=== PATIENT | female | born 1930 | race Hispanic/Latino ===

== ENCOUNTER 2019-08-10 01:36 | Inpatient (IN) | payer MEDICARE ==
--- NOTE | 2019-08-10 02:10 | Emergency Department Report ---
<LAURENTOBISIVA Snell - Last Filed: 08/10/19 06:09> ED Head Trauma HPI - General Chief complaint: Head Injury Stated complaint: FALL Time Seen by Provider: 08/10/19 01:57 Source: patient, EMS Mode of arrival: Stretcher Limitations: Physical Limitation - History of Present Illness Initial comments: 89-year-old female presents to ED status post fall and head injury. Patient states she fell approximately 1.5 hours ago at home and hit her head on the TV cabinet. No LOC. Place patient reports there was lots of blood present in the area that she fell at home. She reports it was a mechanical fall. States she did not get dizzy, denies any chest pain or shortness of breath prior to the fall. 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 Patient reports headache at this time and also left hip pain. Patient states she did not try to stand while at home, states she scooted toward the door to unlock it for EMS. MD Complaint: head injury, fall -: hour(s) (1.5) Mechanism of Injury: mechanical fall Location: parietal Loss of Consciousness: no Previous Trauma to this Area: Yes Place: home Radiation: none Severity: moderate Quality: aching Consistency: constant Other Injuries: laceration, other (left hip) Context: on other anticoagulant (eliquis) Associated Symptoms: denies other symptoms, neck pain. denies: nausea, vomiting - Related Data Home Medications Medication Instructions Recorded Confirmed Last Taken Apixaban [Eliquis] 5 mg PO BID 08/10/19 08/10/19 Unknown AtorvaSTATin [Lipitor] 20 mg PO QHS 08/10/19 08/10/19 Unknown Lisinopril [Zestril TAB] 10 mg PO BID 08/10/19 08/10/19 Unknown Metoprolol [Lopressor] 25 mg PO BID 08/10/19 08/10/19 Unknown Multivitamin Tab 1 tab PO DAILY 08/10/19 08/10/19 Unknown amLODIPine [Norvasc] 5 mg PO DAILY 08/10/19 08/10/19 Unknown Allergies/Adverse reactions: Allergies Allergy/AdvReac Type Severity Reaction Status Date / Time Sulfa (Sulfonamide AdvReac Itching Verified 08/10/19 02:20 Antibiotics) ED Review of Systems Comment: All other systems reviewed and negative Constitutional: denies: chills, fever Respiratory: denies: shortness of breath Cardiovascular: denies: chest pain, palpitations Gastrointestinal: denies: abdominal pain, nausea, vomiting Musculoskeletal: other (reports left hip pain) Neurological: headache. denies: vertigo ED Past Medical Hx - Past Medical History Previous Medical History?: Yes Hx Hypertension: Yes Hx Arthritis: Yes Additional medical history: blood clots - Surgical History Past Surgical History?: Yes Hx Cholecystectomy: Yes Additional Surgical History: r wrist, R hip, tonsillectomy - Social History Smoking Status: Never Smoker Substance Use Type: None - Medications Home Medications: Home Medications Medication Instructions Recorded Confirmed Last Taken Type Apixaban [Eliquis] 5 mg PO BID 08/10/19 08/10/19 Unknown History AtorvaSTATin [Lipitor] 20 mg PO QHS 08/10/19 08/10/19 Unknown History Lisinopril [Zestril TAB] 10 mg PO BID 08/10/19 08/10/19 Unknown History Metoprolol [Lopressor] 25 mg PO BID 08/10/19 08/10/19 Unknown History Multivitamin Tab 1 tab PO DAILY 08/10/19 08/10/19 Unknown History amLODIPine [Norvasc] 5 mg PO DAILY 08/10/19 08/10/19 Unknown History ED Physical Exam - General Limitations: Physical Limitation General appearance: alert - Head Head exam: Present: other (5 cm laceration to the right parietal scalp) - Eye Eye exam: Present: normal appearance, PERRL, EOMI - ENT ENT exam: Present: mucous membranes moist - Neck Neck exam: Present: normal inspection - Respiratory Respiratory exam: Present: normal lung sounds bilaterally. Absent: respiratory distress - Cardiovascular Cardiovascular Exam: Present: regular rate, normal rhythm - GI/Abdominal GI/Abdominal exam: Present: soft. Absent: distended, tenderness - Extremities Exam Extremities exam: Present: other (decreased ROM in the left hip secondary to pain) - Back Exam Back exam: Present: normal inspection - Neurological Exam Neurological exam: Present: alert, oriented X3, CN II-XII intact. Absent: motor sensory deficit - Psychiatric Psychiatric exam: Present: normal affect, normal mood - Skin Skin exam: Present: warm, dry, intact, normal color ED Course - Reevaluation(s) Reevaluation #1: 08/10/19 04:34 Earlier, while I was suturing the pt, she began to complain of nausea. She bec alyssia bradycardic, w/ HR dropping into the upper 30s. Pt was near syncopal with her appearing to pass out, but she did not. Her heart rate increased again into the 80s. This episode lasted approx 2 min. EKG shows NSR w/ normal rate and rhythm, no ST changes. Reevaluation #2: 08/10/19 04:46 Called into room by RN. Pt's neighbor at bedside, was speaking to pt when she became unresponsive. Pulse present. This time, pt's HR is normal, but BP low with systolic BP of 88 and O2 sats 89% RA. IV fluids ordered. Pt responsive w/ painful stimuli. Pt states she feels funny, but denies pain. Will rescan Head and obtain CTA Chest. Reevaluation #3: 08/10/19 05:[address], feeling much better. BP 152/57, HR 93, O2 sats 100% on 2L - Laceration /Wound Repair Right Parietal Wound Location: head Wound Length (cm): 5 Wound's Depth, Shape: into muscle, linear Wound Explored: clean Irrigated w/ Saline (ccs): 1,000 Betadine Prep?: No Anesthesia: Lidocaine w/ Epi Volume Anesthetic (ccs): 4 Number of Sutures: 10 (rosamaria) Layer Closure?: Yes Deep Layer Suture Size/Type: 4:0 Number Deep Layer Sutures: 3 (vicryl) Sterile Dressing Applied?: No - Lab Data Result diagrams: 08/10/19 02:21 08/10/19 02:08 - EKG Data -: EKG Interpreted by Me EKG shows normal: sinus rhythm, intervals, QRS complexes, ST-T waves Rate: normal Interpretation: no acute changes, other (incomplete right bundle branch block) - Radiology Data Radiology results: report reviewed, image reviewed - Medical Decision Making 89-year-old female, currently on Levaquin as for history of DVT and PE. Patient fell at home, sustaining a head injury with scalp laceration. Patient reports this was a mechanical fall, denies any LOC. Only complaint upon arrival is headache and left hip pain. Initial CT head, CT C-spine, hip films are all negative. Patient was given 4 mg of morphine for pain. While cleaning and repair her laceration, patient had an episode of bradycardia and near syncope w hich lasted for approximately 2 minutes. After the procedure was over, patient had a syncopal episode. This time her heart rate remained normal, but she was found to be hypotensive. Patient responded well to IV fluid bolus. She was taken back to CT to obtain a repeat head and also a CTA of the chest. It is possible that pt may have had a bradycardic or hypotensive episode at home which may have led to her fall/ syncope. Pt will require admission. My colleague, Dr Galvan, will follow-up on CT results. - Differential Diagnosis intracranial injury, arrythmia, ACS, fracture, sprain Critical Care Time: Yes Critical care time in (mins) excluding proc time.: 35 Critical Care Time: 35m minutes ED Disposition Clinical Impression: Head injury, Bradycardia, Scalp laceration, Syncope, Hypotension, Anticoagulant long-term use Disposition: OP ADMIT IP TO THIS HOSP Condition: Stable <JASON GALVAN - Last Filed: 08/10/19 06:35> ED Review of Systems ROS: Stated complaint: FALL Other details as noted in HPI ED Course Vital Signs 08/10/19 08/10/19 08/10/19 01:50 02:00 02:51 Temperature 98.6 F Pulse Rate 78 92 H Respiratory 22 16 19 Rate Blood Pressure 183/71 171/115 Blood Pressure 186/71 [Left] O2 Sat by Pulse 98 95 Oximetry 08/10/19 08/10/19 08/10/19 03:00 03:21 04:00 Temperature Pulse Rate 89 83 Respiratory 21 16 26 H Rate Blood Pressure 135/64 135/51 Blood Pressure [Left] O2 Sat by Pulse 93 96 Oximetry 08/10/19 06:04 Temperature Pulse Rate 94 H Respiratory 23 Rate Blood Pressure Blood Pressure 130/43 [Left] O2 Sat by Pulse 99 Oximetry - Lab Data Result diagrams: 08/10/19 02:21 08/10/19 02:08 Lab Results 08/10/19 08/10/19 08/10/19 Range/Units 02:08 02:08 02:21 WBC 8.1 (4.5-11.0) K/mm3 RBC 3.99 (3.65-5.03) M/mm3 Hgb 12.7 (10.1-14.3) gm/dl Hct 37.7 (30.3-42.9) % MCV 95 (79-97) fl MCH 32 (28-32) pg MCHC 34 (30-34) % RDW 13.3 (13.2-15.2) % Plt Count 182 (140-440) K/mm3 Lymph % (Auto) 10.5 L (13.4-35.0) % [place] % (Auto) 9.5 H (0.0-7.3) % Eos % (Auto) 1.6 (0.0-4.3) % Baso % (Auto) 0.5 (0.0-1.8) % Lymph # 0.8 L (1.2-5.4) K/mm3 [place] # 0.8 (0.0-0.8) K/mm3 Eos # 0.1 (0.0-0.4) K/mm3 Baso # 0.0 (0.0-0.1) K/mm3 Seg Neutrophils % 77.9 H (40.0-70.0) % Seg Neutrophils # 6.3 (1.8-7.7) K/mm3 PT 13.9 (12.2-14.9) Sec. INR 1.08 (0.87-1.13) APTT 29.7 (24.2-36.6) Sec. Sodium 135 L (137-145) mmol/L Potassium 4.1 (3.6-5.0) mmol/L Chloride 103.3 (98-107) mmol/L Carbon Dioxide 21 L (22-30) mmol/L Anion Gap 15 mmol/L BUN 19 H (7-17) mg/dL Creatinine 0.7 (0.7-1.2) mg/dL Estimated GFR > 60 ml/min BUN/Creatinine Ratio 27 % Glucose 122 H (65-100) mg/dL Calcium 9.3 (8.4-10.2) mg/dL Troponin T (0.00-0.029) ng/mL 08/10/19 Range/Units 04:15 WBC (4.5-11.0) K/mm3 RBC (3.65-5.03) M/mm3 Hgb (10.1-14.3) gm/dl Hct (30.3-42.9) % MCV (79-97) fl MCH (28-32) pg MCHC (30-34) % RDW (13.2-15.2) % Plt Count (140-440) K/mm3 Lymph % (Auto) (13.4-35.0) % [place] % (Auto) (0.0-7.3) % Eos % (Auto) (0.0-4.3) % Baso % (Auto) (0.0-1.8) % Lymph # (1.2-5.4) K/mm3 [place] # (0.0-0.8) K/mm3 Eos # (0.0-0.4) K/mm3 Baso # (0.0-0.1) K/mm3 Seg Neutrophils % (40.0-70.0) % Seg Neutrophils # (1.8-7.7) K/mm3 PT (12.2-14.9) Sec. INR (0.87-1.13) APTT (24.2-36.6) Sec. Sodium (137-145) mmol/L Potassium (3.6-5.0) mmol/L Chloride (98-107) mmol/L Carbon Dioxide (22-30) mmol/L Anion Gap mmol/L BUN (7-17) mg/dL Creatinine (0.7-1.2) mg/dL Estimated GFR ml/min BUN/Creatinine Ratio % Glucose (65-100) mg/dL Calcium (8.4-10.2) mg/dL Troponin T < 0.010 (0.00-0.029) ng/mL - Radiology Data Radiology results: report reviewed CTA CHEST WITH IV CONTRAST INDICATION: hypoxia. TECHNIQUE: Axial CT images were obtained through the chest after injection of 100 mL Omnipaque 350 IV contrast. 3 plane MIP reconstructions were produced. All CT scans at this location are performed using CT dose reduction for ALARA by means of automated exposure control. COMPARISON: None available. FINDINGS: PULMONARY ARTERIES: Well- opacified without visualization of thromboemboli. AORTA AND ARTERIES: The aorta is patent and normal in caliber and moderately calcified. The great vessels are patent, normal in caliber and mildly calcified. There is dense generalized coronary atherosclerosis. No acute abnormality is seen. MEDIASTINUM: A subcentimeter noncalcified nodule is seen along the lower pole of the right thyroid lobe. No other significant abnormality is seen along the heart or other mediastinal structures. LUNGS: Biapical scarring is noted with mild dependent bilateral atelectasis. There is a noncalcified solid nodule in the right lower lobe measuring 9 mm on image 75 of series 2. Smaller scattered noncalcified solid nodules are seen along the left lower lobe. No other significant pulmonary abnormality, pneumothorax or pleural effusion. ADDITIONAL FINDINGS: None. UPPER ABDOMEN: No acute abnormality. There is bilateral adrenal hyperplasia. The liver is enlarged. BONES: Osteopenia/osteoporosis is noted with degenerative changes of the shoulders and spine. No acute abnormality is seen. IMPRESSION: 1. No CT evidence for pulmonary embolism. 2. No acute findings. 3. Bilateral lower lobe pulmonary nodules as above. A follow-up CT of the chest without contrast in 3 months is recommended. 4. Incidental subcentimeter right thyroid nodule. No follow-up imaging is indicated at this time. 5. Additional findings as above. CT HEAD WITHOUT CONTRAST INDICATION : change in mental status, head injury. TECHNIQUE: Axial, coronal and sagittal CT imaging was performed from the skull apex through the skull base without contrast. All CT scans at this location are performed using CT dose reduction for ALARA by means of automated exposure control. COMPARISON: CT head without contrast performed earlier today. FINDINGS: PARENCHYMA: No mass, midline shift, hemorrhage, extraaxial collection or acute territorial infarction. Age-appropriate atrophy is stable. VENTRICLES: Prominent secondary to atrophy without an acute abnormality. SOFT TISSUES: The previously seen right parietal scalp hematoma is again noted with surrounding edema. No other significant abnormality of the included soft tissues/orbits. BONES: No ac kiersten osseous abnormality. SINUSES: The previously described sinus disease is unchanged. The mastoid air cells are patent. ADDITIONAL FINDINGS: None. IMPRESSION: 1. No new acute intracranial abnormality. 2. Additional findings as above. Critical care attestation.: If time is entered above; I have spent that time in minutes in the direct care of this critically ill patient, excluding procedure time. ED Disposition Is pt being admited?: Yes Time of Disposition: 06:34 (Dr Srinivasan/[facility])
[2019-08-10] MEDS ORDERED: LIDOCAINE 2%/EPINEPHRINE 1:100,000 VIAL (20 ML) INFILTRATI ONE (02:20)
[2019-08-10] MEDS ORDERED: MORPHINE 2 MG/1 ML INJ IV ONE (02:23)
[2019-08-10] MEDS ORDERED: SODIUM CHLORIDE IRRI 500 ML 500 ML IR ONE (02:23)
[2019-08-10 02:29] LABS: INR 1.08 (0.87-1.13)
[2019-08-10 02:30] LABS: Partial Thromboplastin Time 29.7 Sec. (24.2-36.6)
[2019-08-10] MEDS ORDERED: LIDOCAINE 2%/EPINEPHRINE 1:200,000 VIAL (20 ML) INFILTRATI ONE (02:31)
[2019-08-10] MEDS ORDERED: SODIUM CHLORIDE 0.9% IRR 500 ML BOTTLE IR ONE (02:31)
--- NOTE | 2019-08-10 02:34 | XRay Report ---
RIGHT HIP 3 VIEWS INDICATION / CLINICAL INFORMATION: Right hip pain after fall. COMPARISON: None available. FINDINGS: BONES and JOINT(S): No acute fracture or subluxation. No significant arthritis. Internal fixation of the right hip appears intact and in good position. There is evidence of a remote intertrochanteric fr acture. SOFT TISSUES: No acute abnormality. Generalized atherosclerosis is present along the pelvis and lower extremities. ADDITIONAL FINDINGS: None. IMPRESSION: 1. No acute findings. 2. Additional findings as above. Signer Name: Bradford Dewitt MD Signed: 08/10/2019 2:29 AM Workstation Name: [id number]
[2019-08-10 02:42] LABS: Basophils % (Auto) 0.5 % (0.0-1.8); Eosinophils # (Auto) 0.1 K/mm3 (0.0-0.4); Eosinophils % (Auto) 1.6 % (0.0-4.3); Hematocrit 37.7 % (30.3-42.9); Hemoglobin 12.7 gm/dl (10.1-14.3); Lymphocytes # (Auto) 0.8 K/mm3 (1.2-5.4); Lymphocytes % (Auto) 10.5 % (13.4-35.0); Mean Corpuscular HGB Conc 34 % (30-34); Mean Corpuscular Volume 95 fl (79-97); Monocytes # (Auto) 0.8 K/mm3 (0.0-0.8); Monocytes % (Auto) 9.5 % (0.0-7.3); Platelet Count 182 K/mm3 (140-440); Red Blood Count 3.99 M/mm3 (3.65-5.03); Red Cell Distribution Width 13.3 % (13.2-15.2)
[2019-08-10 02:42] LABS: BUN/Creatinine Ratio 27; Blood Urea Nitrogen 19 mg/dL (7-17); Calcium 9.3 mg/dL (8.4-10.2); Hemolysis Index 43
--- NOTE | 2019-08-10 02:54 | Cat Scan Report ---
CT HEAD WITHOUT CONTRAST INDICATION : MAIN: fall, head injury/ PAIN, on eliquis. TECHNIQUE: Axial, coronal and sagittal CT imaging was performed from the skull apex through the skul l base without contrast. All CT scans at this location are performed using CT dose reduction for ALA RA by means of automated exposure control. COMPARISON: None available. FINDINGS: PARENCHYMA: No mass, midline shift, hemorrhage, extraaxial collection or acute territorial infarctio n. Age-appropriate generalized atrophy is noted. VENTRICLES: Prominent secondary to atrophy without an acute abnormality. SOFT TISSUES: There is a large lateral right parietal scalp hematoma with evidence of additional ext ensive scalp laceration/injury along the bilateral parietal and right occipital regions. No additiona l significant abnormality of the remaining soft tissues/orbits. BONES: No acute osseous abnormality. SINUSES: There is a large right maxillary sinus air-fluid level. The right sphenoid sinus is complete ly opacified. The remaining sinuses are clear. The mastoid air cells are patent. ADDITIONAL FINDINGS: None. IMPRESSION: 1. No acute intracranial abnormality. 2. Large right parietal scalp hematoma with extensive scalp laceration/injury as above. 3. Additional findings as above. Signer Name: Bradford Dewitt MD Signed: 08/10/2019 2:50 AM Workstation Name: [id number]
--- NOTE | 2019-08-10 03:08 | Cat Scan Report ---
CT CERVICAL SPINE WITHOUT CONTRAST INDICATION: Head/neck injury after fall. COMPARISON: None available. TECHNIQUE: Axial, coronal and sagittal CT imaging of the cervical spine without contrast was performe d. All CT scans at this location are performed using CT dose reduction for ALARA by means of automat ed exposure control. FINDINGS: VERTEBRAE:There is exaggeration of the cervical lordosis with grade 1 anterolisthesis at C5-C6. No ac kiersten fracture is seen. Osteopenia is noted. DISC SPACES: Multilevel severe discogenic degenerative changes are seen. FACET JOINTS:There is multilevel bilateral facet hypertrophy. CENTRAL CANAL: There is mild central canal stenosis at C3-C4 secondary to degenerative changes. No si gnificant neural foraminal narrowing is seen. SOFT TISSUES:No acute abnormality. There is mild to moderate generalized atherosclerosis. LUNG APICES: Biapical scarring is seen without an acute abnormality. ADDITIONAL FINDINGS: None IMPRESSION: 1. No acute findings. 2. Severe cervical spondylosis. Signer Name: Bradford Dewitt MD Signed: 08/10/2019 3:04 AM Workstation Name: [email or web address]
--- NOTE | 2019-08-10 03:09 | XRay Report ---
LEFT HIP 2 VIEWS INDICATION / CLINICAL INFORMATION: Left hip pain after fall. COMPARISON: None available. FINDINGS: BONES and JOINT(S): No acute fracture or subluxation. No significant arthritis. SOFT TISSUES: No acute abnormality. Mild atherosclerosis is seen along the pelvis and left thigh. ADDITIONAL FINDINGS: None. IMPRESSION: No acute abnormality of the left hip. Signer Name: Bradford Dewitt MD Signed: 08/10/2019 3:05 AM Workstation Name: [id number]
[2019-08-10] MEDS ORDERED: ONDANSETRON 4 MG/2 ML INJ ONE (03:19)
[2019-08-10] MEDS ORDERED: ONDANSETRON 4 MG/2 ML INJ IV ONE (03:45)
[2019-08-10] MEDS ORDERED: SODIUM CHLORIDE 0.9% 1000 ML 1,000 ML ONE (04:44)
[2019-08-10] MEDS ORDERED: SODIUM CHLORIDE 0.9% 1000 ML 1,000 ML IV ONE ×2 (04:45→06:13)
--- NOTE | 2019-08-10 06:06 | Cat Scan Report ---
CT HEAD WITHOUT CONTRAST INDICATION : change in mental status, head injury. TECHNIQUE: Axial, coronal and sagittal CT imaging was performed from the skull apex through the skul l base without contrast. All CT scans at this location are performed using CT dose reduction for ALA RA by means of automated exposure control. COMPARISON: CT head without contrast performed earlier today. FINDINGS: PARENCHYMA: No mass, midline shift, hemorrhage, extraaxial collection or acute territorial infarctio n. Age-appropriate atrophy is stable. VENTRICLES: Prominent secondary to atrophy without an acute abnormality. SOFT TISSUES: The previously seen right parietal scalp hematoma is again noted with surrounding pratima a. No other significant abnormality of the included soft tissues/orbits. BONES: No acute osseous abnormality. SINUSES: The previously described sinus disease is unchanged. The mastoid air cells are patent. ADDITIONAL FINDINGS: None. IMPRESSION: 1. No new acute intracranial abnormality. 2. Additional findings as above. Signer Name: Bradford Dewitt MD Signed: 08/10/2019 6:02 AM Workstation Name: [id number]
--- NOTE | 2019-08-10 06:12 | Cat Scan Report ---
CTA CHEST WITH IV CONTRAST INDICATION: hypoxia. TECHNIQUE: Axial CT images were obtained through the chest after injection of 100 mL Omnipaque 350 IV contrast. 3 plane MIP reconstructions were produced. All CT scans at this location are performed using CT dose reduction for ALARA by means of automated exposure control. COMPARISON: None available. FINDINGS: PULMONARY ARTERIES: Well-opacified without visualization of thromboemboli. AORTA AND ARTERIES: The aorta is patent and normal in caliber and moderately calcified. The great ves sels are patent, normal in caliber and mildly calcified. There is dense generalized coronary atherosc lerosis. No acute abnormality is seen. MEDIASTINUM: A subcentimeter noncalcified nodule is seen along the lower pole of the right thyroid lo be. No other significant abnormality is seen along the heart or other mediastinal structures. LUNGS: Biapical scarring is noted with mild dependent bilateral atelectasis. There is a noncalcified solid nodule in the right lower lobe measuring 9 mm on image 75 of series 2. Smaller scattered noncal cified solid nodules are seen along the left lower lobe. No other significant pulmonary abnormality, pneumothorax or pleural effusion. ADDITIONAL FINDINGS: None. UPPER ABDOMEN: No acute abnormality. There is bilateral adrenal hyperplasia. The liver is enlarged. BONES: Osteopenia/osteoporosis is noted with degenerative changes of the shoulders and spine. No acut e abnormality is seen. IMPRESSION: 1. No CT evidence for pulmonary embolism. 2. No acute findings. 3. Bilateral lower lobe pulmonary nodules as above. A follow-up CT of the chest without contrast in 3 months is recommended. 4. Incidental subcentimeter right thyroid nodule. No follow-up imaging is indicated at this time. 5. Additional findings as above. Signer Name: Bradford Dewitt MD Signed: 08/10/2019 6:07 AM Workstation Name: [id number]
[2019-08-10] MEDS ORDERED: ONDANSETRON 4 MG/2 ML INJ IV PRN (10:37)
[2019-08-10] MEDS ORDERED: ACETAMINOPHEN 325 MG TAB PO PRN (10:37)
--- NOTE | 2019-08-10 10:40 | History and Physical Report ---
History of Present Illness Date of admission: 08/10/19 06:38 History of present illness: 89-year-old woman with history of multiple falls in the past. 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 She had previously learned in PT how to get up slowly and safely. States that she had fallen asleep on the couch. She got up too quickly and sustained a mechanical fall and then hit her head on the TV cabinet. She denies chest pain dizziness or loss of consciousness. States that after the fall she noticed that she was bleeding from her head, she had headache. She also notices that she had pelvic pain and left hip pain. and was unable to wa lk. Medications and Allergies Allergies Allergy/AdvReac Type Severity Reaction Status Date / Time Sulfa (Sulfonamide AdvReac Itching Verified 08/10/19 02:20 Antibiotics) Home Medications Medication Instructions Recorded Confirmed Last Taken Type Apixaban [Eliquis] 5 mg PO BID 08/10/19 08/10/19 Unknown History AtorvaSTATin [Lipitor] 20 mg PO QHS 08/10/19 08/10/19 Unknown History Lisinopril [Zestril TAB] 10 mg PO BID 08/10/19 08/10/19 Unknown History Metoprolol [Lopressor] 25 mg PO BID 08/10/19 08/10/19 Unknown History Multivitamin Tab 1 tab PO DAILY 08/10/19 08/10/19 Unknown History amLODIPine [Norvasc] 5 mg PO DAILY 08/10/19 08/10/19 Unknown History Active Meds: Active Medications Acetaminophen (Tylenol) 650 mg PO Q4H PRN PRN Reason: Pain MILD(1-3)/Fever >100.5/GRAY Ondansetron HCl (Zofran) 4 mg IV Q8H PRN PRN Reason: Nausea And Vomiting Sodium Chloride (Sodium Chloride Flush Syringe 10 Ml) 10 ml IV BID GUY Sodium Chloride (Sodium Chloride Flush Syringe 10 Ml) 10 ml IV PRN PRN PRN Reason: LINE FLUSH Exam - Constitutional Vitals: Temp Pulse Resp BP Pulse Ox 98.6 F 99 H 24 131/57 96 08/10/19 01:50 08/10/19 10:01 08/10/19 10:01 08/10/19 10:01 08/10/19 09:00 Results - Labs CBC & Chem 7: 08/10/19 02:21 08/10/19 02:08 Labs: Laboratory Last Values WBC 8.1 K/mm3 (4.5-11.0) 08/10/19 02:21 RBC 3.99 M/mm3 (3.65-5.03) 08/10/19 02:21 Hgb 12.7 gm/dl (10.1-14.3) 08/10/19 02:21 Hct 37.7 % (30.3-42.9) 08/10/19 02:21 MCV 95 fl (79-97) 08/10/19 02:21 MCH 32 pg (28-32) 08/10/19 02:21 MCHC 34 % (30-34) 08/10/19 02:21 RDW 13.3 % (13.2-15.2) 08/10/19 02:21 Plt Count 182 K/mm3 (140-440) 08/10/19 02:21 Lymph % (Auto) 10.5 % (13.4-35.0) L 08/10/19 02:21 [place] % (Auto) 9.5 % (0.0-7.3) H 08/10/19 02:21 Eos % (Auto) 1.6 % (0.0-4.3) 08/10/19 02:21 Baso % (Auto) 0.5 % (0.0-1.8) 08/10/19 02:21 Lymph # 0.8 K/mm3 (1.2-5.4) L 08/10/19 02:21 [place] # 0.8 K/mm3 (0.0-0.8) 08/10/19 02:21 Eos # 0.1 K/mm3 (0.0-0.4) 08/10/19 02:21 Baso # 0.0 K/mm3 (0.0-0.1) 08/10/19 02:21 Seg Neutrophils % 77.9 % (40.0-70.0) H 08/10/19 02:21 Seg Neutrophils # 6.3 K/mm3 (1.8-7.7) 08/10/19 02:21 PT 13.9 Sec. (12.2-14.9) 08/10/19 02:08 INR 1.08 (0.87-1.13) 08/10/19 02:08 APTT 29.7 Sec. (24.2-36.6) 08/10/19 02:08 Sodium 135 mmol/L (137-145) L 08/10/19 02:08 Potassium 4.1 mmol/L (3.6-5.0) 08/10/19 02:08 Chloride 103.3 mmol/L (98-107) 08/10/19 02:08 Carbon Dioxide 21 mmol/L (22-30) L 08/10/19 02:08 Anion Gap 15 mmol/L 08/10/19 02:08 BUN 19 mg/dL (7-17) H 08/10/19 02:08 Creatinine 0.7 mg/dL (0.7-1.2) 08/10/19 02:08 Estimated GFR > 60 ml/min 08/10/19 02:08 BUN/Creatinine Ratio 27 % 08/10/19 02:08 Glucose 122 mg/dL (65-100) H 08/10/19 02:08 Calcium 9.3 mg/dL (8.4-10.2) 08/10/19 02:08 Troponin T < 0.010 ng/mL (0.00-0.029) 08/10/19 04:15 Assessment and Plan Assessment and plan: 89-year-old woman who is status post fall and head injury. She fell at home. And hit her head on the TV cabinets. She denies loss of consciousness, stated that it was a mechanical fall and she missed her footing. 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 She presented with headache and also complained of left hip pain. She had to scoot over to ambulate due to the hip pain. left hip xray; neg CTA chest; no PE, bilat lung nodules, R thyroid nodule CTH; neg CT cervical Spine: no acute findings, severe cervical spondylosis Dx Pelvic pain/inability to walk X-rays were negative, will obtain pelvic x-ray, pelvic CT and left hip CT. Patient has previous history of fractures after falling. PT consulted scalp laceration Was stapled in the ER Bradycardia? Was documented in ER charts. But all vitals show normal heart rate. We will continue to monitor on telemetry. anticoagulant use due to hx of DVT/PE Continue Eliquis lung nodules Will need repeat CT chest in 3 to 6 months. Disposition will be determined after patient is seen by physical therapy.
--- NOTE | 2019-08-10 16:56 | XRay Report ---
Pelvis 3 views. 08/10/2019. HISTORY: Pelvic and left hip pain. FINDINGS: Previous placement of a compression screw at the right hip. Alignment is satisfactory. No a cute injury identified. Contrast material is seen within the bladder from a recent exam. Signer Name: Estevan Gabriel MD Signed: 08/10/2019 4:52 PM Workstation Name: [id number]
[2019-08-10] MEDS: oxyCODONE /ACETAMINOPHEN 5-325MG TAB PO PRN (21:08)
[2019-08-10] MEDS: LISINOPRIL 10 MG TAB PO SCH (21:14)
[2019-08-10] MEDS: METOPROLOL TARTRATE 25 MG TAB PO SCH (21:14)
[2019-08-10] MEDS: APIXABAN 5 MG TAB PO SCH (21:14)
[2019-08-11] MEDS: oxyCODONE /ACETAMINOPHEN 5-325MG TAB PO PRN ×2 (09:37→21:57)
--- NOTE | 2019-08-11 09:46 | Cat Scan Report ---
CT PELVIS WITHOUT CONTRAST HISTORY: Pelvic pain in left hip pain, patient fell 2 days ago TECHNIQUE: Helical CT without contrast. Sagittal and coronal reformatted images. All CT scans at this location are performed using CT dose reduction for ALARA by means of automated exposure control. COMPARISON: Pelvic films performed the same day. FINDINGS: Osteopenia is evident. Nondisplaced acute fractures are identified in the left superior and inferior pelvic rami. The remainder of the pelvic bones are intact. The proximal femurs are intact. Previous i nternal stabilization of the right femoral neck is noted. Left L5 hemitransitional vertebra is also n oted. A small to medium pelvic hematoma is identified adjacent to the left superior pelvic ramus fracture s ite measuring up to 6.8 x 5.6 cm in axial plane. This displaces the base of the bladder to the right side. This could indicate injury to the internal pudendal artery. IMPRESSION: Osteopenia. Left superior and inferior pelvic rami fracture. Pelvic hematoma as described. Signer Name: Renato Mendoza Jr, MD Signed: 08/11/2019 9:41 AM Workstation Name: [id number]
[2019-08-11] MEDS ORDERED: MULTIVITAMIN PO SCH (10:00)
[2019-08-11] MEDS ORDERED: amLODIPine 5 MG TAB PO SCH (10:00)
[2019-08-11] MEDS: MULTIVITAMINS,THER W-MINERALS TAB PO SCH (10:13)
[2019-08-11] MEDS: LISINOPRIL 10 MG TAB PO SCH (10:13)
[2019-08-11] MEDS: METOPROLOL TARTRATE 25 MG TAB PO SCH (10:13)
[2019-08-11 11:00] LABS: Hematocrit 26.9 % (30.3-42.9)
[2019-08-11] MEDS: APIXABAN 5 MG TAB PO SCH (11:28)
--- NOTE | 2019-08-11 13:38 | Progress Note ---
Assessment and Plan Assessment and plan: 89-year-old woman who is status post fall and head injury. She had a mechanical fall at home and hit her head on the TV cabinets. She denies loss of consciousness. She presented with headache and also complained of left hip pain. 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 CT head showed large RT parietal scalp hematoma. Other imagings neg for acute fractures. CTA chest: neg for PE, bilat lung nodules, R thyroid nodule. CT cervical Spine: no acute findings, severe cervical spondylosis. Of note, per the daughter, she had fallen multiple times in the past. LT Pelvic pain with poor mobility 2/2 mechanical fall -imagings neg for acute fractures -cont PRN narcotics and fall precautions -PT/OT consulted Large RT parietal scalp hematoma with scalp laceration per head CT -laceration was stapled in the ER -will repeat CT head in am for f/u Acute blood loss anemia -will monitor H/H and transfuse as needed Chronic anticoagulant use due to hx of DVT -will hold eliquis due to the hematoma for now -daughter informed of the head ct scan finding and the need to hold the eliquis. She's in agreement with the decision Bilateral lung nodules per imaging -Will need repeat CT chest in 3 months. Hypertensive urgency -probably 2/2 pain -BP improved and now low -will hold home anti-hypertensives -on PRN IV hydralazine RT thyroid nodule -for out-pt f/u Mild hyponatremia -will monitor level Metabolic acidosis -will monitor level Disposition: PT eval pending. F/u H/H and repeat head CT scan. Daughter informed of the findings and all questions answered accordingly. History Interval history: Pt continues to complain of LT hip pain and inability to move it. She denies chest pain or sob. Hospitalist Physical - Constitutional Vitals: Temp Pulse Resp BP Pulse Ox 99.2 F 83 18 111/44 95 08/11/19 11:11 08/11/19 11:11 08/11/19 11:11 08/11/19 11:11 08/11/19 11:11 General appearance: Present: no acute distress - EENT Eyes: Present: PERRL, EOM intact ENT: clear oral mucosa - Neck Neck: Present: supple - Respiratory Respiratory effort: normal Respiratory: bilateral: CTA - Cardiovascular Rhythm: regular Heart Sounds: Present: S1 & S2 - Extremities Extremity abnormal: edema (trace edema in BLE) - Abdominal General gastrointestinal: soft, non-tender, normal bowel sounds - Integumentary Integumentary: Present: warm - Psychiatric Psychiatric: cooperative - Neurologic Neurologic: other (alert and oriented x 3) Results - Labs CBC & Chem 7: 08/11/19 10:14 08/10/19 02:08 Labs: Laboratory Last Values WBC 8.1 K/mm3 (4.5-11.0) 08/10/19 02:21 RBC 3.99 M/mm3 (3.65-5.03) 08/10/19 02:21 Hgb 9.0 gm/dl (10.1-14.3) L D 08/11/19 10:14 Hct 26.9 % (30.3-42.9) L D 08/11/19 10:14 MCV 95 fl (79-97) 08/10/19 02:21 MCH 32 pg (28-32) 08/10/19 02:21 MCHC 34 % (30-34) 08/10/19 02:21 RDW 13.3 % (13.2-15.2) 08/10/19 02:21 Plt Count 182 K/mm3 (140-440) 08/10/19 02:21 Lymph % (Auto) 10.5 % (13.4-35.0) L 08/10/19 02:21 [place] % (Auto) 9.5 % (0.0-7.3) H 08/10/19 02:21 Eos % (Auto) 1.6 % (0.0-4.3) 08/10/19 02:21 Baso % (Auto) 0.5 % (0.0-1.8) 08/10/19 02:21 Lymph # 0.8 K/mm3 (1.2-5.4) L 08/10/19 02:21 [place] # 0.8 K/mm3 (0.0-0.8) 08/10/19 02:21 Eos # 0.1 K/mm3 (0.0-0.4) 08/10/19 02:21 Baso # 0.0 K/mm3 (0.0-0.1) 08/10/19 02:21 Seg Neutrophils % 77.9 % (40.0-70.0) H 08/10/19 02:21 Seg Neutrophils # 6.3 K/mm3 (1.8-7.7) 08/10/19 02:21 PT 13.9 Sec. (12.2-14.9) 08/10/19 02:08 INR 1.08 (0.87-1.13) 08/10/19 02:08 APTT 29.7 Sec. (24.2-36.6) 08/10/19 02:08 Sodium 135 mmol/L (137-145) L 08/10/19 02:08 Potassium 4.1 mmol/L (3.6-5.0) 08/10/19 02:08 Chloride 103.3 mmol/L (98-107) 08/10/19 02:08 Carbon Dioxide 21 mmol/L (22-30) L 08/10/19 02:08 Anion Gap 15 mmol/L 08/10/19 02:08 BUN 19 mg/dL (7-17) H 08/10/19 02:08 Creatinine 0.7 mg/dL (0.7-1.2) 08/10/19 02:08 Estimated GFR > 60 ml/min 08/10/19 02:08 BUN/Creatinine Ratio 27 % 08/10/19 02:08 Glucose 122 mg/dL (65-100) H 08/10/19 02:08 Calcium 9.3 mg/dL (8.4-10.2) 08/10/19 02:08 Troponin T < 0.010 ng/mL (0.00-0.029) 08/10/19 04:15 Active Medications - Current Medications Current Medications: Generic Name Dose Route Start Last Admin Trade Name Freq PRN Reason Stop Dose Admin Acetaminophen 650 mg 08/10/19 10:37 Tylenol PO Q4H PRN Pain MILD(1-3)/Fever >100.5/GRAY Amlodipine Besylate 5 mg 08/11/19 10:00 08/11/19 10:13 Amlodipine PO 5 mg DAILY GUY Administration Atorvastatin Calcium 20 mg 08/10/19 22:00 08/10/19 21:14 Lipitor PO Not Given QHS GUY Lisinopril 10 mg 08/10/19 22:00 08/11/19 10:13 Zestril PO 10 mg BID GUY Administration Metoprolol Tartrate 25 mg 08/10/19 22:00 08/11/19 10:13 Metoprolol PO 25 mg BID GUY Administration Multivitamins/Minerals 1 each 08/11/19 10:00 08/11/19 10:13 Theragran-M Tab PO 1 each QDAY GUY Administration Ondansetron HCl 4 mg 08/10/19 10:37 Zofran IV Q8H PRN Nausea And Vomiting Oxycodone/Acetaminophen 1 tab 08/10/19 10:37 08/11/19 09:37 Percocet 5/325 PO 1 tab Q6H PRN Administration Pain, Moderate (4-6) Sodium Chloride 10 ml 08/10/19 22:00 08/11/19 10:14 Sodium Chloride Flush Syringe 10 Ml IV 10 ml BID GUY Administration Sodium Chloride 10 ml 08/10/19 10:37 Sodium Chloride Flush Syringe 10 Ml IV PRN PRN LINE FLUSH
[2019-08-11] MEDS ORDERED: traMADol 50 MG TAB PO PRN (13:49)
[2019-08-11] MEDS ORDERED: hydrALAZINE 20 MG/1 ML INJ IV PRN (13:51)
[2019-08-12 05:04] LABS: Hemoglobin 7.9 gm/dl (10.1-14.3)
[2019-08-12 05:29] LABS: Alanine Aminotransferase 45 units/L (7-56); BUN/Creatinine Ratio 20; Blood Urea Nitrogen 14 mg/dL (7-17); Calcium 8.6 mg/dL (8.4-10.2); Hemolysis Index 0
[2019-08-12] MEDS: DOCUSATE SODIUM 100 MG CAP PO SCH ×2 (09:34→23:56)
[2019-08-12] MEDS: MULTIVITAMINS,THER W-MINERALS TAB PO SCH (09:34)
--- NOTE | 2019-08-12 10:45 | Cat Scan Report ---
CT head/brain wo con INDICATION: scalp hematoma f/u. TECHNIQUE: Head CT without contrast. All CT scans at this location are performed using CT dose reduction for ALA RA by means of automated exposure control. COMPARISON: Head CT on 08/10/2019. FINDINGS: The extra cranial scalp hematoma in the right parietal scalp has decreased in size, currently only me asuring about 4 mm in greatest [id number] dimension. There is no acute intracranial hemorrhage, bra in edema, or other adverse change from the prior exam. There is an unchanged calcified lesion over th e mid left frontal convexity suggesting a small calcified meningioma. There is stable moderate mucosa l thickening in right sphenoid right maxillary sinuses. IMPRESSION: 1. Decreased size of the right parietal scalp hematoma since the prior study. No acute intracranial f indings. 2. Unchanged small calcified lesion over the left frontal mid convexity suggesting a small meningioma along the inner table of the calvarium. Signer Name: Andrzej Hirsch MD Signed: 08/12/2019 10:40 AM Workstation Name: [id number]
[2019-08-12] MEDS: oxyCODONE /ACETAMINOPHEN 5-325MG TAB PO PRN (10:57)
[2019-08-12 20:24] LABS: Hematocrit 22.9 % (30.3-42.9); Hemoglobin 7.9 gm/dl (10.1-14.3)
[2019-08-13 04:15] LABS: Hematocrit 23.6 % (30.3-42.9); Hemoglobin 8.2 gm/dl (10.1-14.3)
[2019-08-13 06:13] LABS: Basophils % (Auto) 0.5 % (0.0-1.8); Eosinophils # (Auto) 0.1 K/mm3 (0.0-0.4); Hematocrit 23.3 % (30.3-42.9); Hemoglobin 8.2 gm/dl (10.1-14.3); Lymphocytes # (Auto) 0.7 K/mm3 (1.2-5.4); Lymphocytes % (Auto) 9.8 % (13.4-35.0); Mean Corpuscular HGB Conc 35 % (30-34); Mean Corpuscular Volume 94 fl (79-97); Monocytes # (Auto) 0.9 K/mm3 (0.0-0.8); Monocytes % (Auto) 12.5 % (0.0-7.3); Platelet Count 174 K/mm3 (140-440); Red Blood Count 2.49 M/mm3 (3.65-5.03); Red Cell Distribution Width 12.7 % (13.2-15.2)
[2019-08-13 06:24] LABS: Alanine Aminotransferase 33 units/L (7-56); BUN/Creatinine Ratio 22; Blood Urea Nitrogen 13 mg/dL (7-17); Calcium 8.8 mg/dL (8.4-10.2); Hemolysis Index 5
--- NOTE | 2019-08-13 06:51 | Progress Note ---
Assessment and Plan LT Pelvic fracture with poor mobility 2/2 mechanical fall -imagings positive for acute fractures-ryan inf and sup rami on l side Left superior and inferior pelvic rami fracture. Ortho consult -cont PRN narcotics and fall precautions -PT/OT consulted Pelvic Hematoma A small to medium pelvic hematoma is identified adjacent to the left superior pelvic ramus fracture site measuring up to 6.8 x 5.6 cm in axial plane. This displaces the base of the bladder to the right side. This could indicate injury to the internal pudendal artery. Monitor h/h. Fall in Hematocrit sec to Pelvic hematoma. Monitor H/H Transfuse as necessary. Large RT parietal scalp hematoma with scalp laceration per head CT -laceration was stapled in the ER -will repeat CT head in am for f/u Acute blood loss anemia sec to Pelvic Hematoma -will monitor H/H and transfuse as needed Chronic anticoagulant use due to hx of DVT -will hold eliquis due to the hematoma for now -daughter informed of the head ct scan finding and the need to hold the eliquis. She's in agreement with the decision Bilateral lung nodules per imaging -Will need repeat CT chest in 3 months. Hypertensive urgency -probably 2/2 pain -BP improved and now low -will hold home anti-hypertensives -on PRN IV hydralazine RT thyroid nodule -for out-pt f/u Mild hyponatremia -will monitor level Metabolic acidosis -will monitor level Disposition: PT F/u. F/u H/H and repeat head CT scan. Daughter informed of the findings and all questions answered accordingly. Acute Rehab D/w daughter who is at bedside for 30 minutes.Answered all her questions. Subjective Date of service: 08/12/19 Principal diagnosis: Pelvic fracture,Pelvic hematoma Interval history: 89-year-old woman who is status post fall and head injury. She had a mechanical fall at home and hit her head on the TV cabinets. She denies loss of consciousness. She presented with headache and also complained of left hip pain. 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 CT head showed large RT parietal scalp hematoma. Other imagings neg for acute fractures. CTA chest: neg for PE, bilat lung nodules, R thyroid nodule. CT cervical Spine: no acute findings, severe cervical spondylosis. Of note, per the daughter, she had fallen multiple times in the past. Has palvic fracture and Pelvic Hematoma. Objective - Constitutional General appearance: Present: no acute distress, well-nourished - EENT Eyes: PERRL, EOM intact ENT: hearing intact, clear oral mucosa Ears: bilateral: normal - Neck Neck: supple, normal ROM - Respiratory Respiratory effort: normal Respiratory: bilateral: CTA - Breasts Breasts: normal - Cardiovascular Rhythm: regular Heart Sounds: Present: S1 & S2. Absent: gallop, rub Extremities: no ischemia, pulses intact, No edema, normal color, abnormal (Decreased ROM at L hip) - Gastrointestinal General gastrointestinal: Present: soft, non-tender, non-distended, normal bowel sounds - Genitourinary Female genitourinary: normal - Integumentary Integumentary: clear, warm, dry - Musculoskeletal Musculoskeletal: 1, strength equal bilaterally - Neurologic Neurologic: moves all extremities - Psychiatric Psychiatric: memory intact, appropriate mood/affect, intact judgment & insight - Labs CBC & Chem 7: 08/13/19 05:42 08/13/19 05:42 Labs: Abnormal lab results 08/12/19 08/13/19 08/13/19 Range/Units 19:36 03:30 05:42 RBC 2.49 L (3.65-5.03) M/mm3 Hgb 7.9 L 8.2 L 8.2 L (10.1-14.3) gm/dl Hct 22.9 L 23.6 L 23.3 L (30.3-42.9) % MCH 33 H (28-32) pg MCHC 35 H (30-34) % RDW 12.7 L (13.2-15.2) % Lymph % (Auto) 9.8 L (13.4-35.0) % [place] % (Auto) 12.5 H (0.0-7.3) % Lymph # 0.7 L (1.2-5.4) K/mm3 [place] # 0.9 H (0.0-0.8) K/mm3 Seg Neutrophils % 76.2 H (40.0-70.0) % Creatinine (0.7-1.2) mg/dL Glucose (65-100) mg/dL Total Protein (6.3-8.2) g/dL Albumin (3.9-5) g/dL 08/13/19 Range/Units 05:42 RBC (3.65-5.03) M/mm3 Hgb (10.1-14.3) gm/dl Hct (30.3-42.9) % MCH (28-32) pg MCHC (30-34) % RDW (13.2-15.2) % Lymph % (Auto) (13.4-35.0) % [place] % (Auto) (0.0-7.3) % Lymph # (1.2-5.4) K/mm3 [place] # (0.0-0.8) K/mm3 Seg Neutrophils % (40.0-70.0) % Creatinine 0.6 L (0.7-1.2) mg/dL Glucose 114 H (65-100) mg/dL Total Protein 5.3 L (6.3-8.2) g/dL Albumin 3.0 L (3.9-5) g/dL CT Pelvis A small to medium pelvic hematoma is identified adjacent to the left superior pelvic ramus fracture site measuring up to 6.8 x 5.6 cm in axial plane. This displaces the base of the bladder to the right side. This could indicate injury to the internal pudendal artery. IMPRESSION: Osteopenia. Left superior and inferior pelvic rami fracture. Pelvic hematoma as described.
[2019-08-13] MEDS: oxyCODONE /ACETAMINOPHEN 5-325MG TAB PO PRN (08:37)
[2019-08-13 10:23] LABS: Hematocrit 24.1 % (30.3-42.9); Hemoglobin 8.6 gm/dl (10.1-14.3)
[2019-08-13] MEDS: MULTIVITAMINS,THER W-MINERALS TAB PO SCH (11:03)
[2019-08-13] MEDS: DOCUSATE SODIUM 100 MG CAP PO SCH ×2 (11:03→22:15)
--- NOTE | 2019-08-13 11:59 | Progress Note ---
Assessment and Plan Assessment and plan: 89-year-old woman who is status post fall and head injury. She had a mechanical fall at home and hit her head on the TV cabinets. She denies loss of consciousness. She presented with headache and also complained of left hip pain. 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 CT head showed large RT parietal scalp hematoma. Other imagings neg for acute fractures. CTA chest: neg for PE, bilat lung nodules, R thyroid nodule. CT cervical Spine: no acute findings, severe cervical spondylosis. Of note, per the daughter, she had fallen multiple times in the past. Has palvic fracture and Pelvic Hematoma. LT Pelvic fracture with poor mobility 2/2 mechanical fall -imagings positive for acute fractures-ryan inf and sup rami on l side Left superior and inferior pelvic rami fracture. Ortho consult -pending -cont PRN narcotics and fall precautions -PT/OT consulted Pelvic Hematoma A small to medium pelvic hematoma is identified adjacent to the left superior pelvic ramus fracture site measuring up to 6.8 x 5.6 cm in axial plane. This displaces the base of the bladder to the right side. This could indicate injury to the internal pudendal artery. Monitor h/h. Fall in Hematocrit sec to Pelvic hematoma. HGB STABLE >8 although dropped from around 12 General surgery consulted to evaluate Transfuse as necessary. Large RT parietal scalp hematoma with scalp laceration per head CT -laceration was stapled in the ER -Neuro stable, continue to moniotr Acute blood loss anemia sec to Pelvic Hematoma -will monitor H/H and transfuse as needed Chronic anticoagulant use due to hx of DVT -will hold eliquis due to the hematoma for now -daughter informed of the head ct scan finding and the need to hold the eliquis. She's in agreement with the decision IR consulted to evaluate if patient is a candidate for IVC filter. Considering the recurrent fall and now with Hematoma in the scalp she is not a good candidate for anticoagulation therapy. Bilateral lung nodules per imaging -Will need repeat CT chest in 3 months. Hypertensive urgency -probably 2/2 pain -BP improved and now low -will hold home anti-hypertensives -on PRN IV hydralazine RT thyroid nodule -for out-pt f/u Mild hyponatremia -will monitor level Metabolic acidosis -will monitor level Disposition: PT F/u. F/u H/H and repeat head CT scan. Daughter informed of the findings and all questions answered accordingly. Acute Rehab D/w daughter who is at bedside for 30 minutes.Answered all her questions. Patient continues to need Inpatient stay due to life threatening condition and decisions surrounding Future complications from anticoagulation. Based on Recommendations can plan for discharge to rehab potentially in am Discussed extensively with the daughter History Interval history: Follow-up, recurrent fall, pelvic hematoma. Patient seen and examined this morning resting comfortably physical therapy pre sent due to the patient's with the nurse and later spoke to the daughter who came by this. Patient this point denies any chest pain nausea vomiting diarrhea. She informs me that she's had clots in the past about a year ago. Hip surgery and was on Eliquis prophylactically but was stopped while she was in rehabilitation and subsequently developed blood clots which also affected her "heart AND Lungs". Hospitalist Physical - Physical exam Narrative exam: VITAL SIGNS: Reviewed. GENERAL: The patient appears normally developed, elderly appearing female, Vital signs as documented. HEAD: No signs of head trauma. EYES: Pupils are equal. Extraocular motions intact. EARS: Hearing grossly intact. MOUTH: Oropharynx is normal. NECK: No adenopathy, no JVD. CHEST: Chest with clear breath sounds bilaterally. No wheezes, rales, or rhonchi. CARDIAC: Regular rate and rhythm. S1 and S2, without murmurs, gallops, or rubs. VASCULAR: No Edema. Peripheral pulses normal and equal in all extremities. ABDOMEN: Soft, non tender and non distended. No rebound or guarding, and no masses palpated. Bowel Sounds normal. MUSCULOSKELETAL: Good range of motion of all major joints except left Hip with Decreased ROM and tender. Extremities without clubbing, cyanosis or edema. NEUROLOGIC EXAM: Alert and oriented x 3 No focal sensory or strength deficits. Speech normal. Follows commands. PSYCHIATRIC: Mood normal. SKIN: detail exam as documented in skin assessment - Constitutional Vitals: Temp Pulse Resp BP Pulse Ox 98.7 F 92 H 18 139/60 97 08/13/19 07:17 08/13/19 07:17 08/13/19 09:00 08/13/19 07:17 08/13/19 09:00 General appearance: Present: no acute distress, well-nourished Results - Labs CBC & Chem 7: 08/13/19 09:54 08/13/19 05:42 Labs: Laboratory Last Values WBC 7.5 K/mm3 (4.5-11.0) 08/13/19 05:42 RBC 2.49 M/mm3 (3.65-5.03) L 08/13/19 05:42 Hgb 8.6 gm/dl (10.1-14.3) L 08/13/19 09:54 Hct 24.1 % (30.3-42.9) L 08/13/19 09:54 MCV 94 fl (79-97) 08/13/19 05:42 MCH 33 pg (28-32) H 08/13/19 05:42 MCHC 35 % (30-34) H 08/13/19 05:42 RDW 12.7 % (13.2-15.2) L 08/13/19 05:42 Plt Count 174 K/mm3 (140-440) 08/13/19 05:42 Lymph % (Auto) 9.8 % (13.4-35.0) L 08/13/19 05:42 [place] % (Auto) 12.5 % (0.0-7.3) H 08/13/19 05:42 Eos % (Auto) 1.0 % (0.0-4.3) 08/13/19 05:42 Baso % (Auto) 0.5 % (0.0-1.8) 08/13/19 05:42 Lymph # 0.7 K/mm3 (1.2-5.4) L 08/13/19 05:42 [place] # 0.9 K/mm3 (0.0-0.8) H 08/13/19 05:42 Eos # 0.1 K/mm3 (0.0-0.4) 08/13/19 05:42 Baso # 0.0 K/mm3 (0.0-0.1) 08/13/19 05:42 Seg Neutrophils % 76.2 % (40.0-70.0) H 08/13/19 05:42 Seg Neutrophils # 5.7 K/mm3 (1.8-7.7) 08/13/19 05:42 PT 13.9 Sec. (12.2-14.9) 08/10/19 02:08 INR 1.08 (0.87-1.13) 08/10/19 02:08 APTT 29.7 Sec. (24.2-36.6) 08/10/19 02:08 Sodium 137 mmol/L (137-145) 08/13/19 05:42 Potassium 4.2 mmol/L (3.6-5.0) 08/13/19 05:42 Chloride 100.2 mmol/L (98-107) 08/13/19 05:42 Carbon Dioxide 24 mmol/L (22-30) 08/13/19 05:42 Anion Gap 17 mmol/L 08/13/19 05:42 BUN 13 mg/dL (7-17) 08/13/19 05:42 Creatinine 0.6 mg/dL (0.7-1.2) L 08/13/19 05:42 Estimated GFR > 60 ml/min 08/13/19 05:42 BUN/Creatinine Ratio 22 % 08/13/19 05:42 Glucose 114 mg/dL (65-100) H 08/13/19 05:42 Calcium 8.8 mg/dL (8.4-10.2) 08/13/19 05:42 Magnesium 2.00 mg/dL (1.7-2.3) 08/12/19 04:34 Total Bilirubin 0.60 mg/dL (0.1-1.2) 08/13/19 05:42 AST 21 units/L (5-40) 08/13/19 05:42 ALT 33 units/L (7-56) 08/13/19 05:42 Alkaline Phosphatase 78 units/L (35-129) 08/13/19 05:42 Troponin T < 0.010 ng/mL (0.00-0.029) 08/10/19 04:15 Total Protein 5.3 g/dL (6.3-8.2) L 08/13/19 05:42 Albumin 3.0 g/dL (3.9-5) L 08/13/19 05:42 Albumin/Globulin Ratio 1.3 % 08/13/19 05:42 Active Medications - Current Medications Current Medications: Generic Name Dose Route Start Last Admin Trade Name Freq PRN Reason Stop Dose Admin Acetaminophen 650 mg 08/10/19 10:37 Tylenol PO Q4H PRN Pain MILD(1-3)/Fever >100.5/GRAY Atorvastatin Calcium 20 mg 08/10/19 22:00 08/12/19 23:56 Lipitor PO 20 mg QHS GUY Administration Docusate Sodium 100 mg 08/12/19 10:00 08/13/19 11:03 Colace PO 100 mg BID GUY Administration Hydralazine HCl 10 mg 08/11/19 13:51 Apresoline IV Q4HR PRN HTN SBP>160 DBP>90 Multivitamins/Minerals 1 each 08/11/19 10:00 08/13/19 11:03 Theragran-M Tab PO 1 each QDAY GUY Administration Ondansetron HCl 4 mg 08/10/19 10:37 Zofran IV Q8H PRN Nausea And Vomiting Oxycodone/Acetaminophen 1 tab 08/10/19 10:37 08/13/19 08:37 Percocet 5/325 PO 1 tab Q6H PRN Administration Pain, Moderate (4-6) Sodium Chloride 10 ml 08/10/19 22:00 08/13/19 09:41 Sodium Chloride Flush Syringe 10 Ml IV Not Given BID GUY Sodium Chloride 10 ml 08/10/19 10:37 Sodium Chloride Flush Syringe 10 Ml IV PRN PRN LINE FLUSH
--- NOTE | 2019-08-13 12:15 | Cat Scan Report ---
CT ABDOMEN AND PELVIS WITH CONTRAST HISTORY: Pelvic Hematoma. COMPARISON: CT pelvis dated 08/11/2019 TECHNIQUE: Helical CT images of the abdomen and pelvis were obtained following administration of intr avenous contrast. Sagittal and coronal reformatted images were reviewed. All CT scans at this [facility] are performed using CT dose reduction for ALARA by means of automated exposure control. CONTRAST: 100 ml of intravenous contrast administered. FINDINGS: Left superior and inferior pelvic rami fractures are unchanged in position and alignment. Adjacent le ft pelvic hematoma appears stable in size measuring 7.4 x 4.8 cm in axial plane. This is not a CTA ex amination however there is no suggestion of active bleeding/arterial spurt on CT with contrast. Mass effect on the bladder is unchanged. The liver is unremarkable. Cholecystectomy has been performed. The pancreas is mildly atrophic but no mass or inflammatory changes. Normal spleen, kidneys and adrenal glands. No evidence for bowel obstruction or focal inflammation. Normal appendix. There are scattered diverti cula in the sigmoid region. The uterus and adnexa are unremarkable. Mild cardiomegaly and small pleural effusions are noted at the lung bases. IMPRESSION: Stable appearance of a left pelvic hematoma and left pelvic rami fractures. Mild volume overload/CHF. Chronic findings as described above. Signer Name: Renato Mendoza Jr, MD Signed: 08/13/2019 12:11 PM Workstation Name: [id number]
--- NOTE | 2019-08-13 12:48 | Consultation ---
History of Present Illness - Reason for Consult Consult date: 08/13/19 IVC filter placement secondary to trauma - History of Present Illness Patient with a history of fall proximally 1 year ago resulting in left hip fracture and left humeral fracture. During her hospitalization surgical recov akua and rehabilitation, the patient was placed on Eliquis prophylactically. Upon the cessation of Eliquis, the patient developed a DVT. The patient's current hospitalization as result of an additional fall resulting in left inferior and superior pubic rami fractures and associated pelvic hematoma, additionally, the patient has subcutaneous parietal hematoma treated in the ER. Serial CT scans of been negative for intercranial hemorrhage. Past History Past Medical History: DVT Social history: no significant social history Family history: no significant family history Medications and Allergies Allergies Allergy/AdvReac Type Severity Reaction Status Date / Time Sulfa (Sulfonamide AdvReac Itching Verified 08/10/19 02:20 Antibiotics) Home Medications Medication Instructions Recorded Confirmed Last Taken Type Apixaban [Eliquis] 5 mg PO BID 08/10/19 08/10/19 Unknown History AtorvaSTATin [Lipitor] 20 mg PO QHS 08/10/19 08/10/19 Unknown History Lisinopril [Zestril TAB] 10 mg PO BID 08/10/19 08/10/19 Unknown History Metoprolol [Lopressor] 25 mg PO BID 08/10/19 08/10/19 Unknown History Multivitamin Tab 1 tab PO DAILY 08/10/19 08/10/19 Unknown History amLODIPine [Norvasc] 5 mg PO DAILY 08/10/19 08/10/19 Unknown History Active Meds: Active Medications Acetaminophen (Tylenol) 650 mg PO Q4H PRN PRN Reason: Pain MILD(1-3)/Fever >100.5/GRAY Atorvastatin Calcium (Lipitor) 20 mg PO QHS [facility] Last Admin: 08/12/19 23:56 Dose: 20 mg Documented by: Docusate Sodium (Colace) 100 mg PO BID [facility] Last Admin: 08/13/19 11:03 Dose: 100 mg Documented by: Hydralazine HCl (Apresoline) 10 mg IV Q4HR PRN PRN Reason: HTN SBP>160 DBP>90 Multivitamins/Minerals (Theragran-M Tab) 1 each PO QDAY [facility] Last Admin: 08/13/19 11:03 Dose: 1 each Documented by: Ondansetron HCl (Zofran) 4 mg IV Q8H PRN PRN Reason: Nausea And Vomiting Oxycodone/Acetaminophen (Percocet 5/325) 1 tab PO Q6H PRN PRN Reason: Pain, Moderate (4-6) Last Admin: 08/13/19 08:37 Dose: 1 tab Documented by: Sodium Chloride (Sodium Chloride Flush Syringe 10 Ml) 10 ml IV BID GUY Last Admin: 08/13/19 09:41 Dose: Not Given Documented by: Sodium Chloride (Sodium Chloride Flush Syringe 10 Ml) 10 ml IV PRN PRN PRN Reason: LINE FLUSH Review of Systems All systems: negative Exam - Constitutional Vitals: Temp Pulse Resp BP Pulse Ox 98.7 F 92 H 18 139/60 97 08/13/19 07:17 08/13/19 07:17 08/13/19 09:00 08/13/19 07:17 08/13/19 09:00 General appearance: Present: no acute distress - EENT Eyes: Present: EOM intact ENT: hearing intact - Neck Neck: Present: supple, normal ROM - Respiratory Respiratory effort: normal - Abdominal General gastrointestinal: Present: deferred Female genitourinary: Present: deferred - Rectal Rectal Exam: deferred - Psychiatric Psychiatric: cooperative Results - Labs CBC & Chem 7: 08/13/19 09:54 08/13/19 05:42 Labs: Abnormal lab results 08/12/19 08/13/19 08/13/19 Range/Units 19:36 03:30 05:42 RBC 2.49 L (3.65-5.03) M/mm3 Hgb 7.9 L 8.2 L 8.2 L (10.1-14.3) gm/dl Hct 22.9 L 23.6 L 23.3 L (30.3-42.9) % MCH 33 H (28-32) pg MCHC 35 H (30-34) % RDW 12.7 L (13.2-15.2) % Lymph % (Auto) 9.8 L (13.4-35.0) % [place] % (Auto) 12.5 H (0.0-7.3) % Lymph # 0.7 L (1.2-5.4) K/mm3 [place] # 0.9 H (0.0-0.8) K/mm3 Seg Neutrophils % 76.2 H (40.0-70.0) % Creatinine (0.7-1.2) mg/dL Glucose (65-100) mg/dL Total Protein (6.3-8.2) g/dL Albumin (3.9-5) g/dL 08/13/19 08/13/19 Range/Units 05:42 09:54 RBC (3.65-5.03) M/mm3 Hgb 8.6 L (10.1-14.3) gm/dl Hct 24.1 L (30.3-42.9) % MCH (28-32) pg MCHC (30-34) % RDW (13.2-15.2) % Lymph % (Auto) (13.4-35.0) % [place] % (Auto) (0.0-7.3) % Lymph # (1.2-5.4) K/mm3 [place] # (0.0-0.8) K/mm3 Seg Neutrophils % (40.0-70.0) % Creatinine 0.6 L (0.7-1.2) mg/dL Glucose 114 H (65-100) mg/dL Total Protein 5.3 L (6.3-8.2) g/dL Albumin 3.0 L (3.9-5) g/dL - Imaging and Cardiology CT scan - abdomen: image reviewed CT Scan - head: image reviewed CT scan - pelvis: image reviewed Assessment and Plan Patient with a history of left hip fracture and humeral fracture 1 year ago who presents with left pubic rami fracture and associated pelvic hematoma as well as a subcutaneous parietal hematoma. The patient is diffusely osteopenic as well. Given her presentation, would rather not recommend the initiation of anticoagulation at this time and the patient is currently in SCDs. Patient would benefit from placement of an IVC filter for several months until she is able to ambulate normally and return to her activities of daily living. However, given her history of falls, and DVT, anticoagulation may put her at increased risk for intracranial hemorrhage and it is likely that her IVC filter will be permanent. We'll schedule her for IVC filter placement tomorrow.
--- NOTE | 2019-08-13 14:07 | Consultation ---
History of Present Illness Consult date: 08/13/19 Chief complaint: Fall - History of present illness History of present illness: 89 yo F with hx of DVT, multiple falls who presented to ER after a mechanical fall. She had a scalp hematoma. She also c/o left waist and hip pain. No abdominal pain. No f/c, cp, sob, n/v. She in on eliquis at home due to hx of DVT and PE. CT scan of pelvis showed a pelvic hematoma and surgery is asked to evaluate the patient.She denies lightheadedness, dizziness. She has been working with PT. Past History Past Medical History: DVT, hypertension, hyperlipidemia, other (PE) Social history: no significant social history Family history: no significant family history Medications and Allergies Allergies Allergy/AdvReac Type Severity Reaction Status Date / Time Sulfa (Sulfonamide AdvReac Itching Verified 08/10/19 02:20 Antibiotics) Home Medications Medication Instructions Recorded Confirmed Last Taken Type Apixaban [Eliquis] 5 mg PO BID 08/10/19 08/10/19 Unknown History AtorvaSTATin [Lipitor] 20 mg PO QHS 08/10/19 08/10/19 Unknown History Lisinopril [Zestril TAB] 10 mg PO BID 08/10/19 08/10/19 Unknown History Metoprolol [Lopressor] 25 mg PO BID 08/10/19 08/10/19 Unknown History Multivitamin Tab 1 tab PO DAILY 08/10/19 08/10/19 Unknown History amLODIPine [Norvasc] 5 mg PO DAILY 08/10/19 08/10/19 Unknown History Active Meds: Active Medications Acetaminophen (Tylenol) 650 mg PO Q4H PRN PRN Reason: Pain MILD(1-3)/Fever >100.5/GRAY Atorvastatin Calcium (Lipitor) 20 mg PO QHS [facility] Last Admin: 08/12/19 23:56 Dose: 20 mg Documented by: Docusate Sodium (Colace) 100 mg PO BID [facility] Last Admin: 08/13/19 11:03 Dose: 100 mg Documented by: Hydralazine HCl (Apresoline) 10 mg IV Q4HR PRN PRN Reason: HTN SBP>160 DBP>90 Multivitamins/Minerals (Theragran-M Tab) 1 each PO QDAY [facility] Last Admin: 08/13/19 11:03 Dose: 1 each Documented by: Ondansetron HCl (Zofran) 4 mg IV Q8H PRN PRN Reason: Nausea And Vomiting Oxycodone/Acetaminophen (Percocet 5/325) 1 tab PO Q6H PRN PRN Reason: Pain, Moderate (4-6) Last Admin: 08/13/19 08:37 Dose: 1 tab Documented by: Sodium Chloride (Sodium Chloride Flush Syringe 10 Ml) 10 ml IV BID GUY Last Admin: 08/13/19 09:41 Dose: Not Given Documented by: Sodium Chloride (Sodium Chloride Flush Syringe 10 Ml) 10 ml IV PRN PRN PRN Reason: LINE FLUSH Review of Systems All systems: negative (10 pt ROS performed and negative except for that listed in HPI) Exam Vital Signs Temp Pulse Resp BP Pulse Ox 98.6 F 78 22 186/71 98 08/10/19 01:50 08/10/19 01:50 08/10/19 01:50 08/10/19 01:50 08/10/19 01:50 Narrative exam: Gen; AAOx3. NAD ENT: no scleral icterus or conjunctival pallor. Bruise to lip CV: S1, S2+ Resp: even and unlabored Abd:soft, NT, ND Ext: no c/c/e Results - Labs 08/13/19 09:54 08/13/19 05:42 Abnormal lab results 08/12/19 08/13/19 08/13/19 Range/Units 19:36 03:30 05:42 RBC 2.49 L (3.65-5.03) M/mm3 Hgb 7.9 L 8.2 L 8.2 L (10.1-14.3) gm/dl Hct 22.9 L 23.6 L 23.3 L (30.3-42.9) % MCH 33 H (28-32) pg MCHC 35 H (30-34) % RDW 12.7 L (13.2-15.2) % Lymph % (Auto) 9.8 L (13.4-35.0) % [place] % (Auto) 12.5 H (0.0-7.3) % Lymph # 0.7 L (1.2-5.4) K/mm3 [place] # 0.9 H (0.0-0.8) K/mm3 Seg Neutrophils % 76.2 H (40.0-70.0) % Creatinine (0.7-1.2) mg/dL Glucose (65-100) mg/dL Total Protein (6.3-8.2) g/dL Albumin (3.9-5) g/dL 08/13/19 08/13/19 Range/Units 05:42 09:54 RBC (3.65-5.03) M/mm3 Hgb 8.6 L (10.1-14.3) gm/dl Hct 24.1 L (30.3-42.9) % MCH (28-32) pg MCHC (30-34) % RDW (13.2-15.2) % Lymph % (Auto) (13.4-35.0) % [place] % (Auto) (0.0-7.3) % Lymph # (1.2-5.4) K/mm3 [place] # (0.0-0.8) K/mm3 Seg Neutrophils % (40.0-70.0) % Creatinine 0.6 L (0.7-1.2) mg/dL Glucose 114 H (65-100) mg/dL Total Protein 5.3 L (6.3-8.2) g/dL Albumin 3.0 L (3.9-5) g/dL Diabetes panel 08/13/19 Range/Units 05:42 Sodium 137 (137-145) mmol/L Potassium 4.2 (3.6-5.0) mmol/L Chloride 100.2 (98-107) mmol/L Carbon Dioxide 24 (22-30) mmol/L BUN 13 (7-17) mg/dL Creatinine 0.6 L (0.7-1.2) mg/dL Glucose 114 H (65-100) mg/dL Calcium 8.8 (8.4-10.2) mg/dL AST 21 (5-40) units/L ALT 33 (7-56) units/L Alkaline Phosphatase 78 (35-129) units/L Total Protein 5.3 L (6.3-8.2) g/dL Albumin 3.0 L (3.9-5) g/dL Calcium panel 08/13/19 Range/Units 05:42 Calcium 8.8 (8.4-10.2) mg/dL Albumin 3.0 L (3.9-5) g/dL Pituitary panel 08/13/19 Range/Units 05:42 Sodium 137 (137-145) mmol/L Potassium 4.2 (3.6-5.0) mmol/L Chloride 100.2 (98-107) mmol/L Carbon Dioxide 24 (22-30) mmol/L BUN 13 (7-17) mg/dL Creatinine 0.6 L (0.7-1.2) mg/dL Glucose 114 H (65-100) mg/dL Calcium 8.8 (8.4-10.2) mg/dL Adrenal panel 08/13/19 Range/Units 05:42 Sodium 137 (137-145) mmol/L Potassium 4.2 (3.6-5.0) mmol/L Chloride 100.2 (98-107) mmol/L Carbon Dioxide 24 (22-30) mmol/L BUN 13 (7-17) mg/dL Creatinine 0.6 L (0.7-1.2) mg/dL Glucose 114 H (65-100) mg/dL Calcium 8.8 (8.4-10.2) mg/dL Total Bilirubin 0.60 (0.1-1.2) mg/dL AST 21 (5-40) units/L ALT 33 (7-56) units/L Alkaline Phosphatase 78 (35-129) units/L Total Protein 5.3 L (6.3-8.2) g/dL Albumin 3.0 L (3.9-5) g/dL - Imaging CT scan - abdomen: report reviewed, image reviewed CT scan - pelvis: report reviewed, image reviewed Assessment and Plan 89 yo F with pelvic hematoma, left pubic ramus fx Plan; 1. Ct scan Pelvis 08/10/[address] A/P with contrast 08/12/[address] Mendoza - pelvic hematoma is stable 2. H/H stable. Pt has not received any transfusion 3. Continue to hold anticoagulation 4. IR consulted for possible IVC filter 5. no surgical intervention Will s/o. Plan d/w with patient and daughter at bedside. D/W Dr. Lubin Thank you, please call with questions.
[2019-08-14 05:07] LABS: Hematocrit 24.5 % (30.3-42.9); Hemoglobin 8.3 gm/dl (10.1-14.3); Mean Corpuscular HGB Conc 34 % (30-34); Mean Corpuscular Volume 94 fl (79-97); Platelet Count 220 K/mm3 (140-440); Red Cell Distribution Width 12.3 % (13.2-15.2)
[2019-08-14 05:23] LABS: BUN/Creatinine Ratio 26; Blood Urea Nitrogen 18 mg/dL (7-17); Calcium 8.5 mg/dL (8.4-10.2); Hemolysis Index 24
[2019-08-14] MEDS ORDERED: SODIUM CHLORIDE 0.9% 500 ML 500 ML ONE (08:14)
[2019-08-14] MEDS ORDERED: HEPARIN/NS 5000 UNIT/500ML 500 ML IR ONE (08:55)
[2019-08-14] MEDS ORDERED: MIDAZOLAM 2 MG/2 ML INJ ONE (08:55)
[2019-08-14] MEDS ORDERED: fentaNYL 100 MCG/2 ML INJ ONE (08:55)
[2019-08-14] MEDS ORDERED: HEPARIN 10,000 UNITS/10 ML VIAL ONE (08:55)
[2019-08-14] MEDS ORDERED: SODIUM CHLORIDE 0.9% 250ML 0 ML ONE (08:55)
[2019-08-14] MEDS ORDERED: LIDOCAINE 1%/EPINEPHRINE 1:100,000 VIAL (20 ML) INFILTRATI ONE (08:55)
[2019-08-14] MEDS ORDERED: SODIUM CHLORIDE 0.9% 500 ML 500 ML IV SCH (09:00)
--- NOTE | 2019-08-14 10:05 | Operative Report ---
Operative Report Operative Report: Date of procedure: 08/14/2019 Pre-operative diagnosis: History of DVT with Frequent Falls Post-operative diagnosis: Same Procedure(s): 1. Ultrasound-Guided Access Right Femoral Vein 2. Inferior Venacavogram 3. Placement of [place] IVC Filter 4. Radiologic Supervision With Interpretation Surgeon: Jonathan Mcdowell MD Director Of Mobile Marketing: None Anesthesia: Local, IV sedation EBL: None Counts: Correct Complications: None Condition: Stable Findings: Successful placement of IVC filter Specimen: None Indication: The patient is an 89-year-old female with a history of being on Eliquis however she recently has had multiple falls resulting in a left hip fracture and humeral fracture and is no longer a candidate for anticoagulation. She is in need of an IVC filter to prevent pulmonary embolus. She was given the risks, benefits, and alternative procedures and consented to the procedure. Description of Procedure: The patient was brought into the public works laborer and laid in supine position, after adequate sedation the patient was prepped and draped in normal sterile fashion. Ultrasound was used to identify the right common femoral vein and the overlying skin and soft tissue was anesthetized with lidocaine. A small stab incision was made and the access needle was used with ultrasound guidance to enter the right common femoral vein. An 035 J-wire was advanced into the inferior vena cava under fluoroscopic guidance and a 5 [place] sheath was placed by Seldinger technique. A 5 [place] pigtail catheter was advanced just above the confluence of the iliac veins and inferior venacavogram was performed that demonstrated normal caliber of the inferior vena cava as well as the level of the renal veins. It also demonstrated the inferior vena cava was free of thrombus. The wire was reinserted and the pigtail catheter was removed leaving the wire in place and then the 5 [place] sheath was removed. The filter delivery sheath was advanced by Seldinger technique into the inferior vena cava with the tip well above the level of the renal veins. The filter was then inserted and positioned with the apex approximately a centimeter below the renal veins. The delivery sheath was withdrawn deploying the filter in place without any evidence of tilt. The sheath was then removed and pressure was held to achieve hemostasis. The patient tolerated the procedure well, all sponge needle and instrument counts correct, the patient was taken to recovery in stable condition.
--- NOTE | 2019-08-14 11:16 | Discharge Summary ---
Providers - Providers Date of Admission: 08/10/19 06:38 Attending physician: GOOD CUEVAS MD 08/10/19 11:55 Physical Therapy Evaluation and Treat [CONS] Routine Comment: Reason For Exam: ataxia 08/11/19 13:55 Occupational Therapy Evaluate and Treat [CONS] Routine Comment: Reason For Exam: LT pelvic pain 2/2 fall 08/12/19 11:44 Consult to Wound/ET Nurse [CONS] Routine Reason For Exam: wound eval 08/13/19 11:00 Consult to Physician [CONS] Routine Comment: SHERYL Consulting Provider: GERARDO DIAZ Physician Instructions: LEFT MESSAGE FOR Reason For Exam: Pelvic fracture 08/13/19 11:02 Consult to Physician [CONS] Routine Comment: SHERYL Consulting Provider: TANISHA HUTSON Physician Instructions: WAS NOTIFIED. Reason For Exam: pelvic hematoma 08/13/19 11:31 Consult to Interventional Radiology [CONS] Routine Consulting Provider: MUNIRA CARRANZA Reason For Exam: evaluate for IVC filter Notified:: Time called:: 12:23 Comment:: SHERYL Primary care physician: GREASER HELPER Hospitalization Reason for admission: fall Condition: Stable Hospital course: 89-year-old woman who is status post fall and head injury. She had a mechanical fall at home and hit her head on the TV cabinets. She denies loss of consciousness. She presented with headache and also complained of left hip pain. 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 CT head showed large RT parietal scalp hematoma. Other imagings neg for acute fractures. CTA chest: neg for PE, bilat lung nodules, R thyroid nodule. CT cervical Spine: no acute findings, severe cervical spondylosis. Of note, per the daughter, she had fallen multiple times in the past. Has palvic fracture and Pelvic Hematoma. LT Pelvic fracture with poor mobility 2/2 mechanical fall -imaging positive for acute fractures-ryan inf and sup rami on l side Left superior and inferior pelvic rami fracture. Ortho consult -Conservative management and no surgery required -cont PRN narcotics and fall precautions -PT/OT recommended snf Pelvic Hematoma A small to medium pelvic hematoma is identified adjacent to the left superior pelvic ramus fracture site measuring up to 6.8 x 5.6 cm in axial plane. This displaces the base of the bladder to the right side. This could indicate injury to the internal pudendal artery. Monitor h/h. Fall in Hematocrit sec to Pelvic hematoma. HGB STABLE >8 although dropped from around 12 stable per surgery no surgical intervention planned at this time Transfuse as necessary. Large RT parietal scalp hematoma with scalp laceration per head CT -laceration was stapled in the ER -Neuro stable, Acute blood loss anemia sec to Pelvic Hematoma -stable Chronic anticoagulant use due to hx of DVT -will hold eliquis due to the hematoma for now -daughter informed of the head ct scan finding and the need to hold the eliquis. She's in agreement with the decision IR consulted IVC filter placed Bilateral lung nodules per imaging -Will need repeat CT chest in 3 months. Hypertensive urgency -probably 2/2 pain -BP improved and now low -on PRN IV hydralazine RT thyroid nodule -for out-pt f/u Left AC cellulitis- Started on emperica abx coverage Mild hyponatremia -will monitor level Metabolic acidosis -will monitor level Patient discharged following placement of IVC filter. She is no longer a candidate for oral anticoagulation secondary to repeated falls prophylatic abx for left AC cellulitis Eliquis discontinued, patient and family advised Disposition: [id number] Time spent for discharge: 35 mins Core Measure Documentation - Palliative Care Palliative Care/ Comfort Measures: Not Applicable - Core Measures Any of the following diagnoses?: none Exam - Physical Exam Narrative exam: VITAL SIGNS: Reviewed. GENERAL: The patient appears normally developed, elderly appearing female, Vital signs as documented. HEAD: No signs of head trauma. EYES: Pupils are equal. Extraocular motions intact. EARS: Hearing grossly intact. MOUTH: Oropharynx is normal. NECK: No adenopathy, no JVD. CHEST: Chest with clear breath sounds bilaterally. No wheezes, rales, or rhonchi. CARDIAC: Regular rate and rhythm. S1 and S2, without murmurs, gallops, or rubs. VASCULAR: No Edema. Peripheral pulses normal and equal in all extremities. ABDOMEN: Soft, non tender and non distended. No rebound or guarding, and no masses palpated. Bowel Sounds normal. MUSCULOSKELETAL: Good range of motion of all major joints except left Hip with Decreased ROM and tender. Extremities without clubbing, cyanosis or edema. NEUROLOGIC EXAM: Alert and oriented x 3 No focal sensory or strength deficits. Speech normal. Follows commands. PSYCHIATRIC: Mood normal. SKIN: detail exam as documented in skin assessment - Constitutional Vitals: Temp Pulse Resp BP Pulse Ox 99.4 F 99 H 18 155/56 96 08/14/19 07:19 08/14/19 01:40 08/14/19 07:33 08/14/19 07:19 08/14/19 07:33 Plan Activity: advance as tolerated, fall precautions Diet: low fat Special Instructions: record daily BP diary Follow up with: PRIMARY CAREMD [Referring] - 7 Days MUNIRA CARRANZA MD [Staff Physician] - 7 Days TANISHA HUTSON DO [Staff Physician] - 7 Days Prescriptions: Docusate Sodium [Colace CAP] 100 mg PO BID #14 capsule cephALEXin [Keflex] 250 mg PO Q6HR #12 capsule traMADoL [Ultram] 50 mg PO Q6HR PRN #12 tablet PRN Reason: Pain
[2019-08-14] MEDS ORDERED: cephALEXin 250 MG CAP PO SCH (12:00)
[2019-08-14] MEDS ORDERED: POLYETHYLENE GLYCOL 3350 17 GM POWDER PO PRN (12:00)
[2019-08-14] MEDS ORDERED: FLEET ENEMA PR ONE (12:30)
[2019-08-14] MEDS: MULTIVITAMINS,THER W-MINERALS TAB PO SCH (13:06)
[2019-08-14] MEDS: DOCUSATE SODIUM 100 MG CAP PO SCH (13:06)
[2019-08-14 13:34] VITALS: BP 128/47
[2019-08-14] MEDS ORDERED: BACITRACIN ZINC OINT 28.4 GM TP SCH (14:00)
--- NOTE | 2019-08-14 15:25 | Consultation ---
History of Present Illness - [facility] Consult date: 08/14/19 Consult reason: fracture History of present illness: 89-year-old female with history of multiple falls in the past. 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 She had previously learned in PT how to get up slowly and safely. States that she had fallen asleep on the couch. She got up too quickly and sustained a mechanical fall and then hit her head on the TV cabinet. She denies chest pain dizziness or loss of consciousness. States that after the fall she noticed that she was bleeding from her head, she had headache. She also notices that she had pelvic pain and left hip pain. and was unable to walk. She was seen in the emergency department as [facility] where x-ray and CT scans were done patient was found to have a nondisplaced inferior pubic ramus fracture on the left Past History Past Medical History: DVT, hypertension, hyperlipidemia, other (PE) Social history: no significant social history Family history: no significant family history Medications and Allergies Allergies Allergy/AdvReac Type Severity Reaction Status Date / Time Sulfa (Sulfonamide AdvReac Itching Verified 08/10/19 02:20 Antibiotics) Home Medications Medication Instructions Recorded Confirmed Last Taken Type AtorvaSTATin [Lipitor] 20 mg PO QHS 08/10/19 08/10/19 Unknown History Lisinopril [Zestril TAB] 10 mg PO BID 08/10/19 08/10/19 Unknown History Metoprolol [Lopressor TAB] 25 mg PO BID 08/10/19 08/10/19 Unknown History Multivitamin Tab 1 tab PO DAILY 08/10/19 08/10/19 Unknown History amLODIPine 5 mg PO DAILY 08/10/19 08/10/19 Unknown History Docusate Sodium [Colace CAP] 100 mg PO BID #14 capsule 08/14/19 Unknown Rx cephALEXin [Keflex] 250 mg PO Q6HR #12 capsule 08/14/19 Unknown Rx traMADoL [Ultram] 50 mg PO Q6HR PRN #12 tablet 08/14/19 Unknown Rx Active Meds: Active Medications Acetaminophen (Tylenol) 650 mg PO Q4H PRN PRN Reason: Pain MILD(1-3)/Fever >100.5/GRAY Atorvastatin Calcium (Lipitor) 20 mg PO QHS [facility] Last Admin: 08/13/19 22:15 Dose: 20 mg Documented by: Bacitracin (Antibiotic Oint) 1 applic TP BID [facility] Last Admin: 08/14/19 13:28 Dose: 1 applic Documented by: Cephalexin (Keflex) 250 mg PO Q6HR [facility] Last Admin: 08/14/19 13:28 Dose: 250 mg Documented by: Docusate Sodium (Colace) 100 mg PO BID [facility] Last Admin: 08/14/19 13:06 Dose: 100 mg Documented by: Hydralazine HCl (Apresoline) 10 mg IV Q4HR PRN PRN Reason: HTN SBP>160 DBP>90 Sodium Chloride (Nacl 0.9% 500 Ml) 500 mls @ 50 mls/hr IV DIRECT [facility] Last Admin: 08/14/19 09:45 Dose: 50 mls Documented by: Multivitamins/Minerals (Theragran-M Tab) 1 each PO QDAY [facility] Last Admin: 08/14/19 13:06 Dose: 1 each Documented by: Ondansetron HCl (Zofran) 4 mg IV Q8H PRN PRN Reason: Nausea And Vomiting Last Admin: 08/13/19 17:13 Dose: 4 mg Documented by: Oxycodone/Acetaminophen (Percocet 5/325) 1 tab PO Q6H PRN PRN Reason: Pain, Moderate (4-6) Last Admin: 08/13/19 08:37 Dose: 1 tab Documented by: Polyethylene Glycol (Miralax [id number]) 17 gm PO QDAY PRN PRN Reason: Constipation Sodium Chloride (Sodium Chloride Flush Syringe 10 Ml) 10 ml IV BID [facility] Last Admin: 08/14/19 13:06 Dose: Not Given Documented by: Sodium Chloride (Sodium Chloride Flush Syringe 10 Ml) 10 ml IV PRN PRN PRN Reason: LINE FLUSH Physical Examination - Physical exam Narrative exam: At the pelvis patient is noted to have tenderness along the left pubic area passive range of motion decreased secondary to pain there is a mild swelling in the left leg Homans sign negative Assessment and Plan Left pubic ramus fracture Recommend conservative management patient be weightbearing as tolerated
== END 2019-08-14 17:00 | DRG 501 ==
LOC: ED 01:36 → 4A 06:38 → 2B-ACE 08-12 21:05
PROVIDERS: ADMIT Internal Medicine; ATTEND Internal Medicine
PROC: 0KQ03ZZ Repair Head Muscle, Percutaneous Approach (ICD-10-PCS; 2019-08-10)
PROC: 06H03DZ Insertion of Intraluminal Device into Inferior Vena Cava, Percutaneous Approach (ICD-10-PCS; principal; 2019-08-14)
PROC: B54BZZA Ultrasonography of Right Lower Extremity Veins, Guidance (ICD-10-PCS; 2019-08-14)
PROC: B5191ZZ Fluoroscopy of Inferior Vena Cava using Low Osmolar Contrast (ICD-10-PCS; 2019-08-14)
DX: S32.9XXA Fracture of unspecified parts of lumbosacral spine and pelvis, initial encounter for closed fracture (principal); D62 Acute posthemorrhagic anemia; E87.1 Hypo-osmolality and hyponatremia; E87.2 Acidosis; S32.592A Other specified fracture of left pubis, initial encounter for closed fracture; R00.1 Bradycardia, unspecified; Z79.01 Long term (current) use of anticoagulants; R55 Syncope and collapse; S09.90XA Unspecified injury of head, initial encounter; I95.9 Hypotension, unspecified; S01.01XA Laceration without foreign body of scalp, initial encounter; R91.1 Solitary pulmonary nodule; I16.0 Hypertensive urgency; E04.1 Nontoxic single thyroid nodule; S30.0XXA Contusion of lower back and pelvis, initial encounter; M19.90 Unspecified osteoarthritis, unspecified site; I10 Essential (primary) hypertension; W18.39XA Other fall on same level, initial encounter; Y93.89 Activity, other specified; Y99.8 Other external cause status; Z86.718 Personal history of other venous thrombosis and embolism; Z88.2 Allergy status to sulfonamides; Z86.711 Personal history of pulmonary embolism; Z79.899 Other long term (current) drug therapy; Z90.49 Acquired absence of other specified parts of digestive tract; Y92.098 Other place in other non-institutional residence as the place of occurrence of the external cause
CPT/HCPCS: 36415; 37191; 70450; 71275; 72125; 72190; 72192; 74177; 76937; 80048; 80053; 83735; 84484; 85014; 85018; 85025; 85027; 85610; 85730; 93005; 93010; G0378; A9270-GY; C1880; J1644; J2250; J2270; J2405; J3010; J7030; J7040; J7050; Q9967